=== PATIENT | male | born 1980 | race Caucasian/White ===

== ENCOUNTER 2017-11-04 01:56 | Inpatient (IN) | payer MEDICAID ==
[~2017-11-04] VITALS: Ht 182.9 cm; Wt 80.0 kg
[~2017-11-04 01:56] MED LIST: ACET-890 PO; NO HOME MEDS
[2017-11-04] MEDS ORDERED: normal saline 1000ML IV soln IVB ONE ×2 (02:25)
[2017-11-04] MEDS ORDERED: LORazepam 2 mg/ml vial IV ONE ×3 (02:40→05:15)
[2017-11-04] MEDS ORDERED: normal saline 1000ml 1,000 ML IV ONE ×3 (02:55→11:30)
[2017-11-04] MEDS ORDERED: levoFLOXACIN-Levaquin 750MG/D5 150 ML IV ONE (02:55)
[2017-11-04 03:18] LABS: HEMATOCRIT 44.4 % (42.0-52.0); HEMOGLOBIN 15.1 g/dl (14.0-17.9); MEAN CORPUSCULAR HEMOGLOBIN 30.4 PG (27.0-31.0); MEAN CORPUSCULAR VOLUME 89.2 FL (78-98); MEAN PLATELET VOLUME 6.8 FL (7.4-10.4); PLATELET COUNT 236 X10'3 (140-440); RED BLOOD COUNT 4.98 X10'6 (4.70-6.10); RED CELL DISTRIBUTION WIDTH 14.5 % (11.5-14.5); WHITE BLOOD COUNT 1.8 X10'3 (4.5-11.0)
[2017-11-04 03:34] LABS: ALBUMIN 3.2 G/DL (3.4-5.0); ALBUMIN/GLOBULIN RATIO 0.9 (1.1-1.5); ANION GAP 18 (8-16); ASPARTATE AMINO TRANSFERASE 25 U/L (10-37); BILIRUBIN,TOTAL 1.7 MG/DL (0.1-1.0); BLOOD UREA NITROGEN 29 MG/DL (7-18); BUN/CREATININE RATIO 16.3 (5.4-32.0); CALCIUM 7.6 MG/DL (8.5-10.1); CHLORIDE 98 MMOL/L (99-107); CREATINE KINASE 157 U/L (39-308); CREATININE 1.78 MG/DL (0.60-1.10); GLUCOSE 125 MG/DL (70-104); POTASSIUM 3.8 MMOL/L (3.5-5.1); SODIUM 135 MMOL/L (135-145); TOTAL CARBON DIOXIDE 19.5 MMOL/L (24-32); TOTAL PROTEIN 6.9 G/DL (6.4-8.2); TROPONIN I < 0.04 NG/ML (0.0-0.05); eGFR 43 ML/MIN
[2017-11-04 03:35] LABS: ALANINE AMINOTRANSFERASE 20 U/L (12-78); ALKALINE PHOSPHATASE 60 IU/L (46-116); LIPASE 54 U/L (73-393)
[2017-11-04 04:30] LABS: ABG BASE EXCESS -8.6 mmol/L (-2.0-3.0); ABG HCO3 15.3 mmol/L (22.0-26.0); ABG OXYGEN SATURATION 86.7 % (95-98); ABG PCO2 (T) 26.9 mmHg (35.0-48.0); ABG PH (T) 7.372 (7.350-7.450); ABG PO2 (T) 52.7 mmHg (83-108); ALLEN'S TEST Positive; FCOHb 0.5 % (0.5-1.5); FLOW 2 L/min; FMetHb 0.3 % (0.3-1.12); PATIENT TEMPERATURE 36.4; TOTAL HEMOGLOBIN 12.4 G/dl (14.0-18.0)
[2017-11-04] MEDS ORDERED: metroNIDAZOLE-Flagyl 750mg/NS 150 ML IV ONE ×2 (04:30→06:50)
[2017-11-04] MEDS ORDERED: metoclopramide 5 mg/ml inj IV ONE (04:30)
[2017-11-04] MEDS ORDERED: CefTRIAXone/D5W-Rocephin 1gm 50 ML IV ONE (04:35)
[2017-11-04] MEDS ORDERED: haloperidol 5mg tablet PO ONE (05:15)
[2017-11-04 07:09] LABS: CLARITY,URINE SLIGHTLY CLOUDY (Clear); GLUCOSE, URINE NEGATIVE (Neg); KETONES,URINE NEGATIVE (Neg); LEUKOCYTE ESTERASE ,URINE NEGATIVE (Neg); NITRITES, URINE NEGATIVE (Neg); OCCULT BLOOD,URINE MODERATE (Neg); PROTEIN,URINE 100 mg/dl (Neg)
[2017-11-04 07:10] LABS: COLOR,URINE DARK YELLOW (Yellow); UA COLLECTION TYPE FOLEY CATH
[2017-11-04 07:15] LABS: URINE AMPHETAMINE SCREEN POSITIVE (Neg); URINE BARBITUATE SCREEN NEGATIVE (Neg); URINE BENZODIAZEPINES SCREEN NEGATIVE (Neg); URINE CANNABINOID SCREEN NEGATIVE (Neg); URINE COCAINE SCREEN NEGATIVE (Neg); URINE METHADONE SCREEN NEGATIVE (Neg); URINE OPIATE SCREEN NEGATIVE (Neg); URINE PHENCYCLIDINE SCREEN NEGATIVE (Neg)
[2017-11-04 07:18] LABS: BACTERIA,URINE NONE SEEN /HPF (Neg); HYALINE CASTS 0-3 /LPF (NEGATIVE); RBC,URINE 0-2 /HPF (0-2); SQUAMOUS EPITHELIAL CELL,UR NONE SEEN /LPF (FEW); WBC,URINE 0-4 /HPF (0-4)
[2017-11-04] MEDS ORDERED: FENTANYL-0.9 % NACL/PF 100 ML IV PRN (07:22)
[2017-11-04] MEDS ORDERED: midazolam 100mg in NS 100ml 100 ML IV PRN (07:22)
[2017-11-04] MEDS ORDERED: midazolam 2 mg/2 ml injection IV ONE (07:25)
[2017-11-04 07:29] LABS: ANISOCYTOSIS 1+; PLATELET ESTIMATE NORMAL; TOTAL CELLS COUNTED 100
[2017-11-04 07:30] LABS: LARGE PLATELETS FEW; POIKILOCYTOSIS FEW
[2017-11-04 07:51] LABS: ABG BASE EXCESS -11.2 mmol/L (-2.0-3.0); ABG HCO3 18.7 mmol/L (22.0-26.0); ABG OXYGEN SATURATION 90.7 % (95-98); ABG PCO2 (T) 59.4 mmHg (35.0-48.0); ABG PH (T) 7.117 (7.350-7.450); ABG PO2 (T) 78.7 mmHg (83-108); ALLEN'S TEST Positive; FCOHb 0.8 % (0.5-1.5); FMetHb 0.1 % (0.3-1.12); FO2Hb 89.9 % (94-100); MINUTE VOLUME 7 L/min; PEEP 5 cm H2O; RESPIRATORY RATE 16 b/min; RESPIRATORY RATE (OBSERVED) 16 b/min; TOTAL HEMOGLOBIN 14.5 G/dl (14.0-18.0)
[2017-11-04] MEDS ORDERED: vancomycin/NS 1 GM ADD-VANTAGE 250 ML IV ONE (08:25)
[2017-11-04] MEDS ORDERED: VECuronium br 10mg inj. IV ONE (08:42)
[2017-11-04] MEDS ORDERED: NORepinephrine 8mg/ 250ml NS 250 ML IV PRN (08:49)
[2017-11-04] MEDS ORDERED: DEXTROSE IV SCH ×3 (09:15→09:42)
[2017-11-04] MEDS ORDERED: TRIMETHOPRIM IV SCH ×3 (09:15→09:42)
[2017-11-04] MEDS ORDERED: [UNRECOGNIZED DRUG - OTHER] IV SCH (09:15)
[2017-11-04] MEDS ORDERED: WATER IV SCH ×3 (09:15→09:42)
[2017-11-04] MEDS ORDERED: [UNRECOGNIZED DRUG - OTHER] IV SCH ×2 (09:20→09:42)
[2017-11-04 09:22] LABS: MAGNESIUM 1.4 MG/DL (1.5-2.4)
[2017-11-04 09:24] LABS: PHOSPHORUS 2.9 MG/DL (2.3-4.5)
[2017-11-04] MEDS ORDERED: vasopressin inj. 60 UNIT in normal saline 100ml IV soln 97 ML IV SCH (09:25)
[2017-11-04 09:40] LABS: ABG BASE EXCESS -14.2 mmol/L (-2.0-3.0); ABG HCO3 16.8 mmol/L (22.0-26.0); ABG OXYGEN SATURATION 91.6 % (95-98); ABG PCO2 (T) 61.2 mmHg (35.0-48.0); ABG PH (T) 7.057 (7.350-7.450); ABG PO2 (T) 81.8 mmHg (83-108); FCOHb 1.1 % (0.5-1.5); FMetHb 0.2 % (0.3-1.12); FO2Hb 90.4 % (94-100); MINUTE VOLUME 12 L/min; PEEP 18 cm H2O; RESPIRATORY RATE 25 b/min; RESPIRATORY RATE (OBSERVED) 25 b/min; TIDAL VOLUME 450 mL; TOTAL HEMOGLOBIN 14.8 G/dl (14.0-18.0)
[2017-11-04 09:48] LABS: HIV ANTIBODY 1&2 RAPID NON-REACTIVE (Neg)
[2017-11-04] MEDS ORDERED: normal saline 1000ml 1,000 ML IV PRN (09:56)
[2017-11-04 10:00] VITALS: BP 58/42
[2017-11-04] MEDS ORDERED: pantoprazole 40 MG vial IV SCH (10:00)
[2017-11-04] MEDS ORDERED: potassium Cl 20 mEq SR tablet PO PRN ×2 (10:00)
[2017-11-04] MEDS ORDERED: K, MAG and/or Phos replacement - Verify level? MC SCH (10:00)
[2017-11-04 10:40] LABS: OXYGEN SATURATION (MIXED VEN) 67.3 % (60-80); PO2 MIXED VENOUS (TEMP COR) 52.8 mmHg (35-46)
[2017-11-04 11:00] VITALS: BP 64/48
[2017-11-04] MEDS ORDERED: acetaminophen 325mg tablet PO PRN (11:30)
[2017-11-04 12:00] VITALS: BP 72/54
[2017-11-04 12:55] LABS: ALANINE AMINOTRANSFERASE 18 U/L (12-78); ALBUMIN 1.9 G/DL (3.4-5.0); ALBUMIN/GLOBULIN RATIO 0.7 (1.1-1.5); ALKALINE PHOSPHATASE 40 IU/L (46-116); ANION GAP 12 (8-16); ASPARTATE AMINO TRANSFERASE 44 U/L (10-37); BILIRUBIN,TOTAL 0.9 MG/DL (0.1-1.0); BLOOD UREA NITROGEN 38 MG/DL (7-18); BUN/CREATININE RATIO 13.1 (5.4-32.0); CALCIUM 6.7 MG/DL (8.5-10.1); CHLORIDE 106 MMOL/L (99-107); POTASSIUM 4.4 MMOL/L (3.5-5.1); SODIUM 140 MMOL/L (135-145); TOTAL CARBON DIOXIDE 22.2 MMOL/L (24-32); TOTAL PROTEIN 4.8 G/DL (6.4-8.2); eGFR 25 ML/MIN
[2017-11-04 12:57] LABS: GLUCOSE 32 MG/DL (70-104)
[2017-11-04] MEDS ORDERED: Dextrose 10%-water IV solution 1,000 ML ONE (12:59)
[2017-11-04 13:00] VITALS: BP 230/120
[2017-11-04] MEDS ORDERED: epiNEPHrine inj 5 MG, calcium chloride inj. 1,000 MG in normal saline 250ml IV soln 235 ML IV SCH (13:00)
[2017-11-04] MEDS ORDERED: ipratropium/albuterol 3ml nebule NEB SCH (13:00)
[2017-11-04 13:10] LABS: ABG HCO3 14.1 mmol/L (22.0-26.0); ABG OXYGEN SATURATION 96.2 % (95-98); ABG PCO2 (T) 62.4 mmHg (35.0-48.0); ABG PH (T) 6.971 (7.350-7.450); ABG PO2 (T) 117.7 mmHg (83-108); FCOHb 0.3 % (0.5-1.5); FMetHb 0.1 % (0.3-1.12); FO2Hb 95.8 % (94-100); MINUTE VOLUME 12 L/min; PEEP 18 cm H2O; RESPIRATORY RATE 25 b/min; RESPIRATORY RATE (OBSERVED) 25 b/min; TIDAL VOLUME 450 mL; TOTAL HEMOGLOBIN 13.1 G/dl (14.0-18.0)
[2017-11-04] MEDS ORDERED: hydrocortisone sod succ/PF 100mg/2ml inj. IV STA (13:18)
[2017-11-04] MEDS ORDERED: Dextrose 10%-water IV solution 1,000 ML IV SCH (13:20)
[2017-11-04 13:23] LABS: HEMATOCRIT 37.2 % (42.0-52.0); HEMOGLOBIN 12.7 g/dl (14.0-17.9); MEAN CORPUSCULAR HEMOGLOBIN 30.8 PG (27.0-31.0); MEAN CORPUSCULAR HGB CONC 34.1 % (33.0-36.5); MEAN CORPUSCULAR VOLUME 90.3 FL (78-98); MEAN PLATELET VOLUME 6.7 FL (7.4-10.4); RED BLOOD COUNT 4.12 X10'6 (4.70-6.10); RED CELL DISTRIBUTION WIDTH 14.8 % (11.5-14.5); WHITE BLOOD COUNT 1.6 X10'3 (4.5-11.0)
[2017-11-04 13:35] LABS: PLATELET COUNT 107 X10'3 (140-440)
[2017-11-04 13:41] LABS: ANISOCYTOSIS 1+; PLATELET ESTIMATE DECREASED; POIKILOCYTOSIS FEW; TOTAL CELLS COUNTED 100
[2017-11-04 13:45] LABS: ALANINE AMINOTRANSFERASE 28 U/L (12-78); ALBUMIN 1.6 G/DL (3.4-5.0); ALBUMIN/GLOBULIN RATIO 0.7 (1.1-1.5); ALKALINE PHOSPHATASE 32 IU/L (46-116); ANION GAP 14 (8-16); ASPARTATE AMINO TRANSFERASE 59 U/L (10-37); BILIRUBIN,TOTAL 0.8 MG/DL (0.1-1.0); BLOOD UREA NITROGEN 41 MG/DL (7-18); BUN/CREATININE RATIO 14.2 (5.4-32.0); CALCIUM 7.6 MG/DL (8.5-10.1); CHLORIDE 107 MMOL/L (99-107); CREATININE 2.89 MG/DL (0.60-1.10); GLUCOSE 115 MG/DL (70-104); MAGNESIUM 1.8 MG/DL (1.5-2.4); POTASSIUM 4.4 MMOL/L (3.5-5.1); SODIUM 139 MMOL/L (135-145); TOTAL PROTEIN 3.8 G/DL (6.4-8.2); eGFR 25 ML/MIN
[2017-11-04 14:00] VITALS: BP 70/54
[2017-11-04] MEDS ORDERED: calcium chloride 100 MG/1 ML inj IV ONE (14:05)
[2017-11-04] MEDS ORDERED: heparin, porcine 5000 units/ml vial SQ SCH (20:00)
[2017-11-04] MEDS ORDERED: hydrocortisone sod succ/PF 100mg/2ml inj. IV SCH (20:00)
[2017-11-05] MEDS ORDERED: levoFLOXACIN-Levaquin 500mg/D5 100 ML IV SCH (08:00)
[2017-11-09] MEDS ORDERED: methylnaltrexone br 12mg/0.6ml inj***SubQ only SQ SCH (08:00)
== END 2017-11-04 14:18 | disposition expired | DRG 133 ==
LOC: ER 01:56 → ICU 2S 08:59
PROVIDERS: ADMIT Internal Medicine Critical Care Medicine; ATTEND Internal Medicine Critical Care Medicine
PROC: 5A1935Z Respiratory Ventilation, Less than 24 Consecutive Hours (ICD-10-PCS; principal; 2017-11-04)
PROC: 0BH17EZ Insertion of Endotracheal Airway into Trachea, Via Natural or Artificial Opening (ICD-10-PCS; 2017-11-04)
DX: J96.00 Acute respiratory failure, unspecified whether with hypoxia or hypercapnia (principal); J18.1 Lobar pneumonia, unspecified organism; N17.9 Acute kidney failure, unspecified; D70.9 Neutropenia, unspecified; E87.2 Acidosis; F15.10 Other stimulant abuse, uncomplicated
CPT/HCPCS: 36415; 36600; 71045; 71250; 80053; 80305; 81001; 82550; 82803; 82810; 82948; 83605; 83690; 83735; 83880; 84100; 84145; 84443; 84484; 85018; 85025; 86703; 87040; 87070; 87077; 87186; 87502; 87503; 93005; 93306; 94002; 94760; A4315; A4353; A6213; A6258; A7015; C1751; J0171; J0696; J1956; J2060; J2250; J2765; J3370; J3490; J7030; J7060